=== PATIENT | male | born 2000 | race Caucasian/White ===

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

== ENCOUNTER 2020-12-05 19:22 | Emergency (ER) | payer BC, OTHER ==
[~2020-12-05] VITALS: Ht 177.8 cm; Wt 77.0 kg
[2020-12-05 19:47] VITALS: BP 140/68
--- NOTE | 2020-12-05 21:10 | NUR ---
pt seen and assessed by provider
== END 2020-12-05 21:10 | disposition home or self-care (01) ==
LOC: ER 19:22
DX: U07.1 COVID-19 (principal); R09.89 Other specified symptoms and signs involving the circulatory and respiratory systems; R05 Cough; R51.9 Headache, unspecified
CPT/HCPCS: 87635; 99283; C9803

== ENCOUNTER 2022-11-09 18:24 | Emergency (ER) | payer MEDICAID ==
[~2022-11-09] VITALS: Ht 170.2 cm; Wt 81.8 kg
[2022-11-09 18:40] VITALS: BP 130/78
[2022-11-09] MEDS ORDERED: LIDOcaine 1% W/epiNEPHrine 1:100,000 20ml vial IJ ONE (19:50)
[2022-11-09] MEDS ORDERED: bacitracin 15gm ointment TP ONE (19:50)
[2022-11-09] MEDS ORDERED: ondansetron 4mg rapidly disintigrating tab PO ONE (19:55)
== END 2022-11-09 21:14 | disposition home or self-care (01) ==
LOC: ER 18:25
DX: S01.81XA Laceration without foreign body of other part of head, initial encounter (principal); V49.3XXA Car occupant (driver) (passenger) injured in unspecified nontraffic accident, initial encounter; Y93.89 Activity, other specified; Y92.89 Other specified places as the place of occurrence of the external cause; Y99.8 Other external cause status
CPT/HCPCS: 12002; 12013; 99283; A6449